=== PATIENT | female | born 2005 | race Caucasian/White ===

== ENCOUNTER 2025-05-06 17:35 | Emergency (ER) | payer MEDICAID ==
[2025-05-06] MEDS: Ketorolac 30 MG/ML SDV IM ONE (19:01)
[2025-05-06] MEDS: Ketorolac 30 MG/ML SDV ONE (19:04)
== END 2025-05-06 19:06 | disposition home or self-care (01) ==
LOC: FB.ED 17:35
DX: O03.9 Complete or unspecified spontaneous abortion without complication (principal); Z91.040 Latex allergy status; Z91.018 Allergy to other foods; Z79.899 Other long term (current) drug therapy
CPT/HCPCS: 36415; 84702; 96372; 99284; J1885